=== PATIENT | male | born 2000 | race Caucasian/White ===

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

== ENCOUNTER 2021-01-28 08:29 | Emergency (ER) | payer OTHER, MEDICAID ==
[2021-01-28] MEDS: Acetaminophen 325 MG Tab PO ONE (08:51)
[2021-01-28 09:03] LABS: CHLORIDE,CL 107 mmol/L (98-107); SODIUM,NA 142 mmol/L (136-145)
[2021-01-28 09:07] LABS: ANION GAP 12.8 mmol/L (5-15)
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
--- NOTE | 2021-01-28 11:14 | CR ---
[id number] RAD/RAD Pelvis 1-2V EXAM: AP PELVIS CLINICAL DATA: TRAUMA. COMPARISON: February 19, 2019. FINDINGS: Hips and sacroiliac joints are normal in appearance with no fracture, dislocation or other osseous abnormality is identified. Joint spaces are maintained. IMPRESSION: 1. Negative exam. Pedro Eller MD 01/28/21 1113 Thank you for allowing us to participate in the care of your patient.
--- NOTE | 2021-01-28 12:51 | CR ---
[id number] RAD/RAD Chest PA or AP 1V EXAM: FRONTAL CHEST INDICATION: TRAUMA. COMPARISON: None. DISCUSSION: The heart and lungs are normal in appearance. IMPRESSION: 1. Negative exam. Pedro Eller MD 01/28/21 [id number] Thank you for allowing us to participate in the care of your patient.
== END 2021-01-28 10:05 | disposition home or self-care (01) ==
LOC: VM.ED 08:29
DX: S06.0X9A Concussion with loss of consciousness of unspecified duration, initial encounter (principal); S61.411A Laceration without foreign body of right hand, initial encounter; S00.83XA Contusion of other part of head, initial encounter; Z91.048 Other nonmedicinal substance allergy status; V89.2XXA Person injured in unspecified motor-vehicle accident, traffic, initial encounter
CPT/HCPCS: 12001; 36415; 71045; 72170; 73000; 80053; 85025; 85610; 99284; A9270; 99283